=== PATIENT | male | born 1955 | race Caucasian/White ===

== ENCOUNTER 2019-04-12 21:26 | Emergency (ER) | payer BC ==
[~2019-04-12] VITALS: Ht 172.7 cm; Wt 113.4 kg
[2019-04-12 21:31] VITALS: Ht 172.7 cm; Wt 113.4 kg
[2019-04-13 00:31] VITALS: BP 129/70
== END 2019-04-13 00:31 | disposition home or self-care (01) ==
LOC: ED 21:26
DX: T63.441A Toxic effect of venom of bees, accidental (unintentional), initial encounter (principal); L25.8 Unspecified contact dermatitis due to other agents; I10 Essential (primary) hypertension; E78.00 Pure hypercholesterolemia, unspecified; Y92.89 Other specified places as the place of occurrence of the external cause
CPT/HCPCS: J0171; J1200; J2930